=== PATIENT | male | born 1955 | race Caucasian/White ===

== ENCOUNTER → 2022-08-18 13:52 | Outpatient (REF) | payer MEDICARE, OTHER, SELFPAY | LOC: HO.SL 13:52 | PROVIDERS: PCP Internal Medicine; Visit Provider Nurse Practitioner Family | DX: Z13.89 Encounter for screening for other disorder (principal) ==

== ENCOUNTER → 2022-09-29 09:45 | Outpatient (REF) | payer MEDICARE, OTHER, SELFPAY | LOC: HO.SL 09:45 | PROVIDERS: Visit Provider Nurse Practitioner Family | DX: G47.33 Obstructive sleep apnea (adult) (pediatric) (principal); R06.83 Snoring; R40.0 Somnolence | CPT/HCPCS: 95806 ==

== ENCOUNTER 2023-08-16 08:17 | Outpatient (AMB) | payer MEDICARE, OTHER, SELFPAY ==
--- NOTE | 2023-08-16 08:27 | MHC.OFFVIS ---
Intake Vital Signs 08/16/23 08:31 Height 5 ft 10 in BP 132/88 Blood Pressure Location Rt brachial Position Sitting Pulse 60 Pulse Source Pulse Oximeter Pulse Oximetry (%) 98 Oxygen Delivery Method Room Air Intake Visit Reasons: 3 mnth f/u - Confirmed Intake Note: Patient presents for sleep apnea. I had a test done last year sometime and I was just called for this appointment, Allergies No Known Allergies Allergy (Verified 08/16/23 08:29) Medication List - Last Reconciled 08/16/23 by Susy Simpson MD alclometasone 0.05% appl topical atorvastatin 10 mg PO DAILY bupropion HCl 150 mg PO QAM ketoconazole 2% appl topical BID PRN metronidazole 0.75% appl topical BID valacyclovir 1,000 mg PO BID HPI HPI Comments History of Present Illness Details 68y/o male comes for follow up of Obstructive sleep apnea. AHI 8 /hr and lowest oxygen 87%. He did not start CPAP and was suggested position therapy.He is interested in oral appliance [facility] Family History Father ALS (amyotrophic lateral sclerosis) Mother No problems noted. Social History Alcohol intake: current Alcohol intake frequency: a few times a week Patient Tobacco Use Status: Never used Tobacco Physical Exam Vital Signs: Last Vital Signs Pulse 60 08/16/23 08:31 BP 132/88 08/16/23 08:31 Pulse Ox 98 08/16/23 08:31 Oxygen Delivery Method Room Air 08/16/23 08:31 Const General: cooperative, healthy appearing, comfortable and no acute distress Nutritional Appearance: average body habitus Orientation/consciousness: patient oriented x3 Neuro General: patient oriented x3, gait normal, tone normal and moves all extremities Assessment & Plan Assessment & Plan (1) MALOU (obstructive sleep apnea): Code(s): G47.33 - Obstructive sleep apnea (adult) (pediatric) Plan [facility] refer to [facility]. Orders: Referrals Dentistry Referral G47.33 - Obstructive sleep apnea (adult) (pediatric) Coding Level of Care Code Est Pt Level 2 (49952) Diagnoses MALOU (obstructive sleep apnea) G47.33
[2023-08-16 08:31] VITALS: BP 132/88; PULSE 60; O2SAT 98
== END 2023-08-16 08:46 | disposition home or self-care (01) ==
PROVIDERS: Visit Provider Psychiatry & Neurology Neurology
DX: G47.33 Obstructive sleep apnea (adult) (pediatric) (principal)
CPT/HCPCS: 99212

== ENCOUNTER → 2023-08-16 08:17 | Outpatient (BNVA) | payer MEDICARE, OTHER, SELFPAY | PROVIDERS: Visit Provider Psychiatry & Neurology Neurology | DX: G47.33 Obstructive sleep apnea (adult) (pediatric) (principal) | CPT/HCPCS: 99212 ==